=== PATIENT | female | born 1950 | race Caucasian/White ===

== ENCOUNTER 2017-12-26 17:51 | Emergency (ER) | payer OTHER ==
[~2017-12-26] VITALS: Ht 160 cm; Wt 79.5 kg
[~2017-12-26 17:51] MED LIST: CIPROFLOXACIN500 MG PO; COZ25 PO; DILANTIN100 MG PO; FLUCONAZOLE100 MG PO; LEVOTHYROXINE0.05 M2 PO; LOSARTAN POTASS1 TA6 PO; LOTREL1 CA1 PO; ZOLOFT50 MG PO
[2017-12-26 17:58] VITALS: Ht 160 cm; Wt 79.5 kg
[2017-12-26 19:02] VITALS: BP 138/88
== END 2017-12-26 19:02 | disposition home or self-care (01) ==
LOC: ED 17:51
DX: B02.9 Zoster without complications (principal); I10 Essential (primary) hypertension